=== PATIENT | female | born 1985 | race Two or more races ===

== ENCOUNTER 2017-11-29 17:09 | Emergency (ER) | payer MEDICAID ==
[~2017-11-29] VITALS: Ht 170.2 cm; Wt 61.4 kg
[2017-11-29] MEDS ORDERED: LIDOCAINE HCL/PF 1% 2ML VIAL INFIL ONE (18:30)
[2017-11-29] MEDS ORDERED: BACITRACIN ZINC OINT UDPKT TOP ONE (18:30)
[2017-11-29] MEDS ORDERED: TETANUS, DIPHTHERIA, PERTUSSIS VAC/PF 0.5ML (>7YR OLD) IM ONE (18:30)
[2017-11-29] MEDS ORDERED: ACETAMINOPHEN WITH CODEINE 300/30MG TABLET PO ONE (18:30)
[2017-11-29] MEDS ORDERED: LIDOCAINE HCL/PF 1% 10 MG/ML 5ML VIAL IJ NR (18:45)
[2017-11-29 20:44] VITALS: BP 107/71
== END 2017-11-29 20:47 | disposition home or self-care (01) ==
LOC: ER 17:09
DX: S61.222A Laceration with foreign body of right middle finger without damage to nail, initial encounter (principal); Y93.89 Activity, other specified; W25.XXXA Contact with sharp glass, initial encounter; W06.XXXA Fall from bed, initial encounter; Y92.092 Bedroom in other non-institutional residence as the place of occurrence of the external cause; F12.90 Cannabis use, unspecified, uncomplicated
CPT/HCPCS: 12002; 73130; 99284; J3490; X7700; Z7610; 90715

== ENCOUNTER 2017-12-05 12:17 | Emergency (ER) | payer MEDICAID ==
[~2017-12-05] VITALS: Ht 162.6 cm; Wt 61.0 kg
[2017-12-05 12:20] VITALS: BP 116/67
== END 2017-12-05 12:45 | disposition home or self-care (01) ==
LOC: ER 12:17
DX: S61.212D Laceration without foreign body of right middle finger without damage to nail, subsequent encounter (principal); S61.214D Laceration without foreign body of right ring finger without damage to nail, subsequent encounter; F17.200 Nicotine dependence, unspecified, uncomplicated; W25.XXXD Contact with sharp glass, subsequent encounter; Z88.0 Allergy status to penicillin; Z91.040 Latex allergy status
CPT/HCPCS: 99281